=== PATIENT | male | born 1990 | race Caucasian/White ===

== ENCOUNTER 2017-04-13 05:44 | Day surgery (SDC) | payer OTHER ==
[2017-04-13] MEDS ORDERED: Dextrose 5%-Lactated Ringers 1,000 ML IV SCH (06:30)
[2017-04-13] MEDS ORDERED: Celecoxib 200 MG Cap PO ONE (06:30)
[2017-04-13] MEDS ORDERED: Bupivacaine 0.5%/EPINEPHrine 1:200,000 50 ML MDV ONE (06:41)
[2017-04-13] MEDS ORDERED: Meropenem 500 MG SDV ONE (06:41)
[2017-04-13] MEDS ORDERED: Glycopyrrolate 0.2 MG/ML 5 ML MDV ONE (07:09)
[2017-04-13] MEDS ORDERED: Rocuronium 50 MG/5 ML Vial ONE (07:09)
[2017-04-13] MEDS ORDERED: Dexamethasone 4 MG/ML SDV ONE (07:09)
[2017-04-13] MEDS ORDERED: Midazolam 1 MG/ML 2 ML SDV ONE (07:09)
[2017-04-13] MEDS ORDERED: Neostigmine Methylsulfate 1 MG/ML 5 ML Syringe ONE (07:09)
[2017-04-13] MEDS ORDERED: fentaNYL 250 MCG/5 ML SDV ONE (07:09)
[2017-04-13] MEDS ORDERED: Ondansetron 4 MG/2 ML SDV ONE (07:09)
[2017-04-13] MEDS ORDERED: Propofol 200 MG/20 ML SDV ONE (07:09)
[2017-04-13] MEDS ORDERED: ceFAZolin 2 GM in Premix Bag 1 BAG IV ONE (07:30)
[2017-04-13] MEDS ORDERED: Ketorolac 60 MG/2 ML SDV ONE (08:04)
[2017-04-13] MEDS ORDERED: fentaNYL 100 MCG/2 ML SDV IVPUSH ONE (08:51)
[2017-04-13] MEDS ORDERED: hydrOXYzine HCl 100 MG/2 ML SDV IM ONE (08:58)
[2017-04-13] MEDS ORDERED: Acetaminophen/oxyCODONE 325-5 MG Tab PO PRN (10:26)
--- NOTE | 2017-04-18 07:34 | OR ---
DATE OF PROCEDURE: 04/13/2017 PREOPERATIVE DIAGNOSES: 1. Umbilical hernia. 2. Incarcerated epigastric hernias x2. 3. High risk for adhesion formation. OPERATIVE PROCEDURES: Diagnostic laparoscopy with: 1. Repair of umbilical hernia with mesh (39413). 2. Repair of supraumbilical epigastric hernia with mesh (03175). 3. Repair of upper abdominal incarcerated epigastric hernia with mesh (25022). 4. Placement of Interceed mesh to displace viscera from pelvis, small bowel, and overlying mesh to limit recurrent adhesion formation (85371). ANESTHESIA: General. TRACK MAN: Nathalia Goode PA-C. INDICATIONS FOR PROCEDURE: This is a 26-year-old presenting with 2 epigastric hernias. These are separate hernias, one located in the supraumbilical area and one in the upper aspect of the midline. Both are not reducible, and the lower one has especially become quite painful recently. The plan is to proceed with laparoscopic repair of these with mesh technique. Potential risks including bleeding, infection, injury to underlying viscera, possible problems with mesh becoming infected or the hernias recurring were all reviewed, and the patient wishes to proceed. DETAILS OF PROCEDURE: The patient was taken to the operating room and placed in a supine position. After general endotracheal anesthesia was induced, a Boles catheter was inserted, and the abdomen was prepped and draped. In the lateral left midabdomen, a transverse incision was made, and the peritoneal cavity entered under direct vision with an Optiview trocar and inflated to 15 mmHg with CO2. Laparoscope was then reinserted. No underlying trocar insertion site injuries were seen. Following this, 5 mm trocars were placed in the lower and upper abdomen bilaterally, and the area was inspected. As expected, the patient was noted to have the incarcerated epigastric hernias. There was also a small umbilical hernia which was not incarcerated. The peritoneum over the 2 epigastric hernias was then incised, and the preperitoneal fat, which was incarcerated within them, was then reduced using a combination of external pressure and Harmonic scalpel dissection. These were sent separately as specimens. The area was then mapped out, and a mesh that covered all 3 of the hernia sites was then selected. This was a Ventralight ST mesh with an oval configuration and long axis of 20.3 cm and a width of 15.2 cm. The sutures were then placed on the upper and lower end of the long axis of the mesh, which was then soaked in antibiotic-containing saline solution and then placed in intraperitoneal location. Using the premarked location on skin, incisions were made for the 2 sutures to generally orient the mesh in the vertical midline along with additional small incision bringing the balloon inflation catheter through the abdominal wall. Once the mesh was in place, the balloon was inflated, thus pushing the mesh up against the abdominal wall. The mesh was then circumferentially affixed with absorbable tacking screws, after which the balloon catheter was deflated and removed. A good fixation of the mesh was confirmed. There was a wide margin of the mesh well away from the areas of the hernias themselves. The patient was felt to be quite high risk for adhesion formation. He had relatively little in the way of omentum, so the small bowel would be coming up against this mesh along with the areas of dissection used for the laparoscopic instrumentation. Given this, an Interceed mesh was then placed up in the pelvis and then upward overlying the abdominal wall to displace the small bowel from those areas and limit adhesion formation. At that point, no further problems were noted. Trocars were removed. The fascia at the 12 mm site was closed with 0 Vicryl stitch and the skin with 4-0 Vicryl skin stitch. Dressing was applied. The patient was taken to the recovery room in a satisfactory condition. Physician event sales assistant, Nathalia Goode played an essential role in assisting in this case, helping to position the patient, retract structures as needed, as well as suturing and cutting sutures when indicated. Her presence improved the patient's safety and decreased the operative time. David Simmons MD /[id number]
== END 2017-04-13 13:00 | disposition home or self-care (01) ==
LOC: JP.SDS 05:44
PROVIDERS: ATTEND Surgery
DX: K42.9 Umbilical hernia without obstruction or gangrene (principal); K43.6 Other and unspecified ventral hernia with obstruction, without gangrene; Z98.890 Other specified postprocedural states
CPT/HCPCS: 36415; 44700; 49653; 80053; 85027; 88302; A9270; C1781; J0690; J1100; J1885; J2185; J2250; J2405; J2704; J2710; J3010; J3410; J7042

== ENCOUNTER 2019-08-23 07:29 | Day surgery (SDC) | payer OTHER ==
[~2019-08-23 07:29] MED LIST: Bupivacaine 0.5% 50 ML MDV ONE; Dexamethasone 4 MG/ML SDV ONE; Glycopyrrolate 0.2 MG/ML 5 ML MDV ONE; Lidocaine 1% with EPINEPHrine 1:100,000 50 ML MDV ONE; Meropenem 500 MG SDV ONE; Neostigmine Methylsulfate 1 MG/ML 5 ML Syringe ONE; Ondansetron 4 MG/2 ML SDV ONE; Propofol 200 MG/20 ML SDV ONE; Rocuronium 50 MG/5 ML Vial ONE; Succinylcholine 200 MG/10 ML MDV ONE; fentaNYL 250 MCG/5 ML SDV ONE
[2019-08-23] MEDS ORDERED: Celecoxib 200 MG Cap PO ONE (07:30)
[2019-08-23] MEDS ORDERED: Acetaminophen 500 MG Tab PO ONE (07:30)
[2019-08-23] MEDS ORDERED: Lidocaine 1% 2 ML ONE (07:47)
[2019-08-23] MEDS ORDERED: Dextrose 5%-Lactated Ringers 1,000 ML IV SCH ×2 (08:30→10:30)
[2019-08-23] MEDS ORDERED: fentaNYL 250 MCG/5 ML SDV ONE (08:37)
[2019-08-23] MEDS ORDERED: ceFAZolin 2 GM in Premix Bag 1 BAG IV ONE (09:00)
[2019-08-23] MEDS ORDERED: Ketamine 500 MG/5 ML MDV IV SCH (09:15)
[2019-08-23] MEDS ORDERED: Ketamine 50 MG in Sodium Chloride 0.9% 49.5 ML IV SCH (09:15)
[2019-08-23] MEDS ORDERED: Ropivacaine 32 ML, dexAMETHasone 8 MG, EPINEPHrine 0.4 MG, Sodium Chloride 0.9% 45.6 ML NERVRT SCH ×4 (09:15)
[2019-08-23] MEDS ORDERED: Ondansetron 4 MG/2 ML SDV IVPUSH PRN (10:26)
[2019-08-23] MEDS ORDERED: HYDROmorphone 1 MG/ML Syringe IV PRN (10:26)
[2019-08-23] MEDS ORDERED: HYDROmorphone 0.5 MG/0.5 ML Syringe IVPUSH PRN (10:26)
[2019-08-23] MEDS ORDERED: hydrOXYzine HCL 100 MG/2 ML SDV IM PRN (10:26)
[2019-08-23] MEDS ORDERED: Cyclobenzaprine 10 MG Tab PO PRN (10:27)
[2019-08-23] MEDS ORDERED: oxyCODONE 5 MG Tab PO PRN (10:27)
[2019-08-23] MEDS ORDERED: Pantoprazole 40 MG Vial IVPUSH SCH (11:00)
[2019-08-23] MEDS ORDERED: ceFAZolin 2 GM in Premix Bag 1 BAG IV SCH (16:00)
[2019-08-24] MEDS ORDERED: Celecoxib 200 MG Cap PO SCH (09:00)
--- NOTE | 2019-09-02 15:12 | OR ---
DATE OF PROCEDURE: 08/23/2019 SURGEON: David Simmons MD PREOPERATIVE DIAGNOSIS: Recurrent incisional hernia. POSTOPERATIVE DIAGNOSIS: Recurrent incisional hernia. OPERATIVE PROCEDURE: Open repair of recurrent incisional hernia (71754). ANESTHESIA: General. STUD DRIVER: Nathalia Goode PA-C. INDICATIONS FOR PROCEDURE: This is a 28-year-old status post previous repair of abdominal wall hernias with mesh, who presents now with an evident clinical recurrence. It would appear that he probably has intact mesh underneath the clinical recurrence, but has a wide diastasis with separation of the rectus muscles in the midline up to around 2 to 3 cm in length from xiphoid down to the umbilicus. Plan would be to proceed with an open repair. Obviously, if it was noted that additional mesh needed to be added, then it will be added, otherwise the mesh will be tightened up and the musculature approximated. Potential risks of the procedure including bleeding and infection, recurrence of the problem over time were all reviewed, and the patient wishes to proceed. DETAILS OF PROCEDURE: The patient was taken to the operating room, and after general endotracheal anesthesia was induced, a Boles catheter was placed, which was removed at the end of the procedure, and the abdomen prepped and draped. A midline incision from the xiphoid to the umbilicus was made and carried down through the skin and subcutaneous tissue and down through the midline fascia, exposing the underlying mesh. This area was then irrigated with antibiotic-containing saline solution. The mesh was then imbricated for its entire length with running 0 Prolene stitch. The musculature overlying this was then reapproximated with a #1 Vicryl stitch, the subcutaneous tissue with 4-0 Vicryl stitch, and the skin with duane. The patient received bilateral transversus abdominis plane blocks with ultrasound guidance and was then taken to the recovery room in satisfactory condition. There were no evident complications. Physician clinic assistant, Nathalia Goode, played an essential role in assisting in this case, helping to position the patient, retracting structures as needed, as well as suturing and cutting sutures when indicated. Her presence improved the patient's safety and decreased the operative time. David Simmons MD /[id number]
== END 2019-08-23 15:11 | disposition home or self-care (01) ==
LOC: JP.SDS 07:29 → JP.MS 09:15 → JP.SDS 15:11
PROVIDERS: ATTEND Surgery
DX: K43.2 Incisional hernia without obstruction or gangrene (principal); I10 Essential (primary) hypertension; F17.220 Nicotine dependence, chewing tobacco, uncomplicated; Z98.890 Other specified postprocedural states
CPT/HCPCS: 36415; 49565; 85027; A9270; C9113; J0171; J0690; J1100; J2001; J2405; J2704; J2710; J2795; J3010; J3490; J7050; J7121; J0330; J2020; J2185

== ENCOUNTER 2022-12-01 22:25 | Emergency (ER) | payer OTHER ==
[2022-12-01 22:58] LABS: BASOPHILS ABSOLUTE AUTO 0.03 K/uL (0.00-0.10); BASOPHILS PERCENT AUTO 0.4 % (0.1-1.3); EOSINOPHILS ABSOLUTE AUTO 0.26 K/uL (0.00-0.40); EOSINOPHILS PERCENT AUTO 3.3 % (0.0-5.4); HEMATOCRIT 45.4 % (38.4-49.7); HEMOGLOBIN 15.4 g/dL (12.9-16.9); IMMATURE GRAN ABSOLUTE AUTO 0.03 K/uL (0.00-0.23); IMMATURE GRAN PERCENT AUTO 0.4 % (0.0-0.7); LYMPHOCYTES ABSOLUTE AUTO 2.71 K/uL (0.8-3.3); LYMPHOCYTES PERCENT AUTO 34.3 % (11.4-47.7); MEAN CORPUSCULAR HEMOGLOBIN 32.4 pg (31.6-35.5); MEAN CORPUSCULAR HGB CONC 33.9 g/dL (31.6-35.5); MEAN CORPUSCULAR VOLUME 95.4 fL (81.4-99.0); MONOCYTES ABSOLUTE AUTO 0.56 K/uL (0.20-0.90); MONOCYTES PERCENT AUTO 7.1 % (3.3-12.6); NEUTROPHILS PERCENT AUTO 54.5 % (40.0-78.1); PLATELET COUNT,PLT 244 K/uL (130-375); RED BLOOD CELL COUNT 4.76 M/uL (4.14-5.76); WHITE BLOOD CELL COUNT,WBC 7.9 K/uL (3.2-11.0)
[2022-12-01 23:21] LABS: CALCIUM 8.8 mg/dL (8.5-10.1); EST CRCL DRUG DOSING (CG) 91.85 mL/min; POTASSIUM,K 3.7 mmol/L (3.6-5.2); TROPONIN I HIGH SENSITIVITY 4.8 pg/mL (<=60.3)
[2022-12-01 23:24] LABS: ANION GAP 13.7 mmol/L (5.0-14.0)
== END 2022-12-02 00:10 | disposition home or self-care (01) ==
LOC: JP.ED 22:25
DX: R09.1 Pleurisy (principal)
CPT/HCPCS: 36415; 71046; 71046-26; 80048; 84484; 85025; 93005; 99285